=== PATIENT | female | born 1955 | race Caucasian/White ===

== ENCOUNTER → 2017-07-22 | Outpatient (CLI) | payer BC, OTHER | END | disposition home or self-care (01) | LOC: MMGSC 15:03 | PROVIDERS: ATTEND Obstetrics & Gynecology | DX: L85.3 Xerosis cutis (principal); R61 Generalized hyperhidrosis; R37 Sexual dysfunction, unspecified | CPT/HCPCS: 36415; 82670; 83001; 84403; 84436; 84443 ==

== ENCOUNTER → 2018-10-11 | Outpatient (CLI) | payer BC, OTHER ==
[2018-10-12 08:55] VITALS: BMI 24.6
== END ==
LOC: DBWHC3 13:11
PROVIDERS: ATTEND Family Medicine
DX: Z13.1 Encounter for screening for diabetes mellitus (principal)
CPT/HCPCS: 97802